=== PATIENT | female | born 1985 | race Caucasian/White ===

== ENCOUNTER 2017-06-03 15:00 | Emergency (ER) | payer OTHER ==
[2017-06-03 15:34] LABS: APPEARANCE,URINE CLOUDY; BILIRUBIN,URINE NEGATIVE (NEGATIVE); COLOR,URINE YELLOW; GLUCOSE, URINE NEGATIVE (NEGATIVE); KETONES,URINE NEGATIVE (NEGATIVE); LEUKOCYTE ESTERASE,URINE MODERATE (NEGATIVE); NITRITE,URINE NEGATIVE (NEGATIVE); PROTEIN,URINE NEGATIVE (NEGATIVE); URINE SPECIFIC GRAVITY 1.024; UROBILINOGEN,URINE NEGATIVE mg/dL (<2.0)
[2017-06-03] MEDS ORDERED: NORMAL SALINE 1000 ML 1,000 ML IV ONE (15:36)
[2017-06-03] MEDS ORDERED: METOCLOPRAMIDE HCL INJ/PF 10 MG/2 ML SDV IV ONE (15:36)
[2017-06-03] MEDS ORDERED: CEFTRIAXONE 1 GM/D5W RTU 1 GM/50 ML RTUPB IV ONE (15:41)
[2017-06-03 16:44] LABS: ABSOLUTE BASOPHILS # (AUTO) 0.1 10^3/uL (0.0-0.2); ABSOLUTE EOSINOPHILS # (AUTO) 0.1 10^3/uL (0.0-0.6); ABSOLUTE LYMPHOCYTES (AUTO) 1.6 10^3/uL (0.5-4.7); ABSOLUTE MONOCYTES (AUTO) 0.5 10^3/uL (0.1-1.4); ABSOLUTE NEUT (AUTO) 6.4 10^3/uL (1.7-8.2); BASOPHILS % (AUTO) 0.7 % (0-2); EOSINOPHILS % (AUTO) 0.9 % (0-6); HEMATOCRIT 37.4 % (36.0-47.0); HEMOGLOBIN 12.7 g/dL (12.0-15.5); LYMPHOCYTES % (AUTO) 18.5 % (13-45); MEAN CORPUSCULAR HEMOGLOBIN 29.8 pg (27.0-33.4); MEAN CORPUSCULAR HGB CONC 34.1 g/dL (32.0-36.0); MEAN CORPUSCULAR VOLUME 87 fl (80-97); MONOCYTES % (AUTO) 5.6 % (3-13); PLATELET COUNT 199 10^3/uL (150-450); RED BLOOD COUNT 4.27 10^6/uL (3.72-5.28); RED CELL DISTRIBUTION WIDTH 12.5 % (11.5-14.0); SEGMENTED NEUTROPHILS % (AUTO) 74.3 % (42-78); TOTAL CELLS COUNTED % (AUTO) 100 %; WHITE BLOOD COUNT 8.6 10^3/uL (4.0-10.5)
[2017-06-03] MEDS ORDERED: GENTAMICIN SULFATE INJ 80 MG/2 ML VIAL IV ONE (16:54)
[2017-06-03 17:08] LABS: ALANINE AMINOTRANSFERASE 27 U/L (9-52); ALBUMIN 3.8 g/dL (3.5-5.0); ALKALINE PHOSPHATASE 30 U/L (38-126); ANION GAP 10 (5-19); ASPARTATE AMINO TRANSFERASE 17 U/L (14-36); BILIRUBIN,DIRECT 0.1 mg/dL (0.0-0.4); BILIRUBIN,TOTAL 0.6 mg/dL (0.2-1.3); BLOOD UREA NITROGEN 7 mg/dL (7-20); CALCIUM 9.4 mg/dL (8.4-10.2); CARBON DIOXIDE 24 mmol/L (22-30); CHLORIDE 102 mmol/L (98-107); GLUCOSE 78 mg/dL (75-110); POTASSIUM 3.8 mmol/L (3.6-5.0); SODIUM 136.1 mmol/L (137-145); TOTAL PROTEIN 6.4 g/dL (6.3-8.2)
--- NOTE | 2017-06-03 18:20 | ER Document Report ---
ED GI/ - General Chief Complaint: Nausea, vomiting, bilateral flank pain Stated Complaint: VOMITING Time Seen by Provider: 06/03/17 15:35 Mode of Arrival: Ambulatory Information source: Patient Notes: Patient is a 32-year-old female who presents to the ER approximately 12 weeks for 2 months of nausea and vomiting despite multiple nausea medications. Patient has also had 2 months of urinary tract infection that seems to not be responding to antibiotics. Patient first was prescribed Keflex after being diagnosed with a UTI, then went to her [facility] who change the Keflex to Macrobid. Patient states that she took all of the Macrobid but was still having burning with urination, worsening symptoms at that time as she really did not have burning before, states she started back on the Keflex and finished that. Patient states that now she is having burning with urination and bilateral flank pain. She denies any fevers or chills that she is noted. She states she does not know if the vomiting is from the urinary tract infection or because she is but she cannot seem to keep anything down and vomits at least 4-5 times per day. She is tried Zofran, Phenergan rectally, Diclegis, B6. TRAVEL OUTSIDE OF THE [place] IN LAST 30 DAYS: No Past Medical History - General Information source: Patient - Social History Smoking Status: Never Smoker Chew tobacco use (# tins/day): No Frequency of alcohol use: None Drug Abuse: None Family History: Reviewed & Not Pertinent Patient has suicidal ideation: No Patient has homicidal ideation: No Renal/ Medical History: Denies: Hx Peritoneal Dialysis Review of Systems - Review of Systems Constitutional: No symptoms reported EENT: No symptoms reported Cardiovascular: No symptoms reported Respiratory: No symptoms reported Gastrointestinal: See HPI Genitourinary: See HPI Female Genitourinary: See HPI Musculoskeletal: No symptoms reported Skin: No symptoms reported Hematologic/Lymphatic: No symptoms reported Neurological/Psychological: No symptoms reported Physical Exam - Vital signs Vitals: Temp Pulse Resp BP Pulse Ox 97.8 F 83 20 115/70 100 06/03/17 15:07 06/03/17 15:07 06/03/17 15:07 06/03/17 15:07 06/03/17 15:07 - Notes Notes: PHYSICAL EXAMINATION: GENERAL: tearful, but in no acute distress. HEAD: Atraumatic, normocephalic. EYES: Pupils equal round and reactive to light, extraocular movements intact, sclera anicteric, conjunctiva are normal. NECK: Normal range of motion, supple without lymphadenopathy LUNGS: CTAB and equal. No wheezes rales or rhonchi. HEART: Regular rate and rhythm without murmurs ABDOMEN: Soft, suprapubic tenderness. No guarding, no rebound BACK: no vertebral tenderness, normal ROM GI/: Bilateral CVA tenderness EXTREMITIES: Normal range of motion, no pitting edema. No cyanosis. NEUROLOGICAL: Cranial nerves grossly intact. Normal sensory/motor exams. PSYCH: Normal mood, normal affect. SKIN: Warm, Dry, normal turgor, no rashes or lesions noted Course - Re-evaluation Re-evalutation: 06/03/17 18:20 Patient has moderate leukocytes and 18 white blood cells, small amount of blood on urinalysis. Patient has been on Keflex and Macrobid. Her white count is normal today. She is not tachycardic or febrile here in the emergency department with normal vital signs. Dr. Cronin, [employer] on-call was consulted because patient is and he advises 1 dose of IV gentamicin here in the emergency department and to discharge her to follow-up in the office. She has not been nauseated at all here in the emergency department after given Reglan. I will send her home with Reglan. - Vital Signs Vital signs: Temp Pulse Resp BP Pulse Ox 97.9 F 83 16 99/55 L 100 06/03/17 18:02 06/03/17 15:07 06/03/17 18:02 06/03/17 18:02 06/03/17 18:02 - Laboratory Result Diagrams: 06/03/17 16:12 06/03/17 16:12 Laboratory results interpreted by me: 06/03/17 06/03/17 15:14 16:12 Sodium 136.1 L Alkaline Phosphatase 30 L Beta HCG, Quant 544246.00 H Urine Blood SMALL H Ur Leukocyte Esterase MODERATE H Discharge - Discharge Clinical Impression: Vomiting affecting UTI (urinary tract infection) Qualifiers: Urinary tract infection type: site unspecified Hematuria presence: with hematuria Qualified Code(s): N39.0 - Urinary tract infection, site not specified Condition: Stable Disposition: HOME, SELF-CARE Instructions: Antinausea Medication ([facility]), Intravenous (IV) Fluids ([facility]), Reglan ([facility]), Urinary Tract Infection ([facility]), Vomiting ([facility]) Additional Instructions: Drink plenty of fluids. Return immediately for any new or worsening symptoms. Follow up with OBGYN, call tomorrow to make followup appointment. 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
[2017-06-03 19:02] VITALS: BP 99/55
== END 2017-06-03 19:02 | disposition home or self-care (01) ==
LOC: ER 15:00
DX: O21.9 Vomiting of pregnancy, unspecified (principal); O23.40 Unspecified infection of urinary tract in pregnancy, unspecified trimester; O26.899 Other specified pregnancy related conditions, unspecified trimester; R10.9 Unspecified abdominal pain; R30.0 Dysuria; Z3A.00 Weeks of gestation of pregnancy not specified
CPT/HCPCS: 99284; 96375; 96365; 96367; 36415; 87086; 84702; 85025; 80053; 81001; J1580; J2765; J7030; J0696

== ENCOUNTER 2017-07-06 14:44 | Emergency (ER) | payer OTHER ==
[2017-07-06] MEDS ORDERED: NORMAL SALINE 1000 ML 1,000 ML IV ONE ×2 (15:07→16:59)
[2017-07-06] MEDS ORDERED: ONDANSETRON HCL INJ/PF 4 MG/2 ML SDV IV ONE ×2 (15:08→17:06)
--- NOTE | 2017-07-06 15:14 | ER Document Report ---
ED Medical Screen (RME) - General Chief Complaint: Nausea/Vomiting Stated Complaint: FEVER,VOMITING Time Seen by Provider: 07/06/17 14:59 TRAVEL OUTSIDE OF THE [place] IN LAST 30 DAYS: No - HPI Notes: 07/06/17 15:10 Patient is a 32-year-old female who is 2 para 1 at 15 weeks and presents with vomiting, cough, dysuria, and low back pain. Patient states for the past 6 weeks approximately she has been fighting a urinary tract infection. Patient was originally placed on Keflex and then she was placed on Macrodantin because her OB felt that the Keflex may be contributing to her vomiting. Patient states that she was also seen in the emergency department and given Rocephin and gentamicin. She states that she had one urine culture and it grew out normal nancy(active bacillus to be exact). Patient states she has been coughing for the last few days and having dysuria. She was restarted on Macrodantin 1 day ago. States she is taking Tylenol every 4 hours for headache. She denies contractions vaginal bleeding or abnormal vaginal discharge. 07/06/17 15:13 I have greeted and performed a rapid initial assessment of this patient. A comprehensive ED assessment and evaluation of the patient, analysis of test results and completion of the medical decision making process will be conducted by additional ED providers. PHYSICAL EXAMINATION: GENERAL: Mildly ill-appearing, well-nourished, in no acute distress. HEAD: Atraumatic, normocephalic. EYES: Pupils equal round extraocular movements intact, conjunctiva are normal. ENT: Nares patent NECK: Normal range of motion LUNGS: No respiratory distress Musculoskeletal: Normal range of motion NEUROLOGICAL: Normal speech, normal gait. PSYCH: Normal mood, normal affect. SKIN: Warm, Dry, normal turgor, no rashes or lesions noted. - Related Data Allergies/Adverse Reactions: No Known Allergies Allergy (Verified 07/06/17 14:45) Past Medical History - Social History Chew tobacco use (# tins/day): No Frequency of alcohol use: None Drug Abuse: None Renal/ Medical History: Denies: Hx Peritoneal Dialysis Physical Exam - Vital signs Vitals: Temp Pulse Resp BP Pulse Ox 97.9 F 107 H 16 111/67 98 07/06/17 14:50 07/06/17 14:50 07/06/17 14:50 07/06/17 14:50 07/06/17 14:50 Course - Vital Signs Vital signs: Temp Pulse Resp BP Pulse Ox 97.9 F 107 H 16 111/67 98 07/06/17 14:50 07/06/17 14:50 07/06/17 14:50 07/06/17 14:50 07/06/17 14:50
--- NOTE | 2017-07-06 15:46 | ER Document Report ---
ED GI/ - General Chief Complaint: Nausea/Vomiting Stated Complaint: FEVER,VOMITING Time Seen by Provider: 07/06/17 14:59 Mode of Arrival: Ambulatory Information source: Patient Notes: 32-year-old female 001 at 15 weeks by ultrasound presents today with around 5 days of runny nose, congestion, back pain, cough, and vomiting. Patient has had a long history of vomiting with including an episode in May being diagnosed with UTI. She was seen here also for vomiting in the very beginning of June with a urine culture showing only lactobacillus. Patient had been treated initially on the first urinary tract infection diagnosis with Macrobid. She called her primary doctor, Dr. pinedo, on Saturday and they placed her back on Macrobid. Patient states both of her children have recently been diagnosed with similar upper respiratory tract/flu symptoms. Patient denies any abdominal pain, cramping, or vaginal bleeding. TRAVEL OUTSIDE OF THE [place] IN LAST 30 DAYS: No - HPI Patient complains to provider of: Other - See above Onset: Other - See above Quality of pain: Other - See above Severity at maximum: Mild Severity in ED: Mild Pain Level: 0 Location: Other - See above Vaginal bleeding (Compared to normal period): None OB ultrasound done: Yes vitamins taken: Yes Sexual history: Active Associated symptoms: Other - See above Exacerbated by: Denies Relieved by: Denies Similar symptoms previously: No Recently seen / treated by doctor: No - Related Data Allergies/Adverse Reactions: No Known Allergies Allergy (Verified 07/06/17 14:45) Past Medical History - General Information source: Patient - Social History Smoking Status: Never Smoker Cigarette use (# per day): No Chew tobacco use (# tins/day): No Smoking Education Provided: No Frequency of alcohol use: None Drug Abuse: None Family History: Reviewed & Not Pertinent Patient has suicidal ideation: No Patient has homicidal ideation: No Renal/ Medical History: Denies: Hx Peritoneal Dialysis Review of Systems - Review of Systems Constitutional: denies: Fever EENT: Nose discharge. denies: Eye discharge Cardiovascular: denies: Chest pain, Palpitations Respiratory: denies: Hurts to breathe, Short of breath Gastrointestinal: Vomiting. denies: Diarrhea Genitourinary: denies: Dysuria Female Genitourinary: Musculoskeletal: denies: Leg swelling Skin: Other - no hives. denies: Rash Neurological/Psychological: Other - no slurred speech -: Yes All other systems reviewed and negative Physical Exam - Vital signs Vitals: Temp Pulse Resp BP Pulse Ox 97.9 F 107 H 16 111/67 98 07/06/17 14:50 07/06/17 14:50 07/06/17 14:50 07/06/17 14:50 07/06/17 14:50 Notes: Reviewed vital signs and nursing note as charted by RN. CONSTITUTIONAL: Alert and oriented and responds appropriately to questions. Well -appearing; well-nourished HEAD: Normocephalic; atraumatic EYES: PERRL ENT: Normal nose; bilateral nonpurulent nasal rhinorrhea; moist mucous membranes ; pharynx without lesions noted NECK: Supple; non-tender CARD: Regular rate and rhythm; no murmurs RESP: Normal chest excursion without splinting or tachypnea; breath sounds clear and equal bilaterally; no wheezes, no rhonchi, no rales ABD/GI: Normal bowel sounds; non-distended with no obvious palpable fundus; soft , non-tender BACK: The back appears normal and is non-tender to palpation, there is no CVA tenderness EXT: Normal ROM in all joints; non-tender to palpation; no cyanosis, no effusions, no edema SKIN: No acute lesions noted NEURO: Moves all extremities equally; Motor and sensory function intact PSYCH: The patient's mood and manner are appropriate. Grooming and personal hygiene are appropriate. Course - Re-evaluation Re-evalutation: 07/06/17 15:49 Given the history and physical examination, I do not believe that the patient requires any imaging at this time. We will obtain fluids, urinalysis, basic labs, and the influenza test. We will reassess the patient's abdomen and vital signs. 07/06/17 16:59 Labs as recorded. Influenza positive. Urine analysis as recorded. Urine culture has been sent. Mild transaminitis. Patient still has no abdominal pain. I have added a second liter of intravenous fluid. Patient has not vomited here at this facility. Patient is still currently taking Macrobid. Given the above history and physical examination I have offered Tamiflu. 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 She does not want Tamiflu at this time. Patient states she would like to go home and will follow up with the primary care physician/[facility] as an outpatient pending urine culture. I have informed the patient of the slight transaminitis and she knows to get follow-up and reevaluation. - Vital Signs Vital signs: Temp Pulse Resp BP Pulse Ox 97.9 F 107 H 16 111/67 98 07/06/17 14:50 07/06/17 14:50 07/06/17 14:50 07/06/17 14:50 07/06/17 14:50 - Laboratory Result Diagrams: 07/06/17 15:32 07/06/17 15:32 Laboratory results interpreted by me: 07/06/17 07/06/17 07/06/17 15:32 15:32 15:32 Hgb 11.2 L Hct 32.6 L Sodium 129.8 L Direct Bilirubin 0.5 H AST 67 H ALT 96 H Total Protein 6.0 L Albumin 3.4 L Urine Ketones 80 H Urine Urobilinogen 4.0 H Ur Leukocyte Esterase SMALL H Discharge - Discharge Clinical Impression: Influenza, Transaminitis Vomiting Qualifiers: Vomiting type: unspecified Vomiting Intractability: non-intractable Nausea presence: with nausea Qualified Code(s): R11.2 - Nausea with vomiting, unspecified Qualifiers: Weeks of gestation: 15 weeks Qualified Code(s): Z3A.15 - 15 weeks gestation of Condition: Good Disposition: HOME, SELF-CARE Additional Instructions: Come back immediately for any increased pain, abdominal pain, vaginal bleeding, persistent vomiting, change in mental status, lethargy, or any other acute problems. Please continue taking her Macrobid and follow-up on the urine culture as well as a repeat evaluation regarding your liver enzyme levels.
[2017-07-06 15:54] LABS: ABSOLUTE LYMPHOCYTES (AUTO) 2.1 10^3/uL (0.5-4.7); ABSOLUTE MONOCYTES (AUTO) 0.4 10^3/uL (0.1-1.4); ABSOLUTE NEUT (AUTO) 4.2 10^3/uL (1.7-8.2); BASOPHILS % (AUTO) 0.4 % (0-2); EOSINOPHILS % (AUTO) 0.5 % (0-6); HEMATOCRIT 32.6 % (36.0-47.0); HEMOGLOBIN 11.2 g/dL (12.0-15.5); LYMPHOCYTES % (AUTO) 30.5 % (13-45); MEAN CORPUSCULAR HEMOGLOBIN 29.3 pg (27.0-33.4); MEAN CORPUSCULAR HGB CONC 34.4 g/dL (32.0-36.0); MEAN CORPUSCULAR VOLUME 85 fl (80-97); MONOCYTES % (AUTO) 6.5 % (3-13); PLATELET COUNT 157 10^3/uL (150-450); RED BLOOD COUNT 3.83 10^6/uL (3.72-5.28); RED CELL DISTRIBUTION WIDTH 13.6 % (11.5-14.0); SEGMENTED NEUTROPHILS % (AUTO) 62.1 % (42-78); TOTAL CELLS COUNTED % (AUTO) 100 %; WHITE BLOOD COUNT 6.8 10^3/uL (4.0-10.5)
[2017-07-06 16:00] LABS: APPEARANCE,URINE SLIGHTLY-CLOUDY; BILIRUBIN,URINE NEGATIVE (NEGATIVE); COLOR,URINE YELLOW; GLUCOSE, URINE NEGATIVE (NEGATIVE); KETONES,URINE 80 mg/dL (NEGATIVE); LEUKOCYTE ESTERASE,URINE SMALL (NEGATIVE); NITRITE,URINE NEGATIVE (NEGATIVE); PROTEIN,URINE NEGATIVE (NEGATIVE); URINE SPECIFIC GRAVITY 1.016
[2017-07-06 16:03] LABS: ALANINE AMINOTRANSFERASE 96 U/L (9-52); ALBUMIN 3.4 g/dL (3.5-5.0); ALKALINE PHOSPHATASE 57 U/L (38-126); ANION GAP 7 (5-19); ASPARTATE AMINO TRANSFERASE 67 U/L (14-36); BILIRUBIN,DIRECT 0.5 mg/dL (0.0-0.4); BILIRUBIN,TOTAL 1.2 mg/dL (0.2-1.3); BLOOD UREA NITROGEN 8 mg/dL (7-20); CALCIUM 8.8 mg/dL (8.4-10.2); CARBON DIOXIDE 25 mmol/L (22-30); CHLORIDE 98 mmol/L (98-107); GLUCOSE 89 mg/dL (75-110); MAGNESIUM 1.9 mg/dL (1.6-2.3); POTASSIUM 3.7 mmol/L (3.6-5.0); SODIUM 129.8 mmol/L (137-145)
[2017-07-06 16:13] LABS: A TYPE INFLUENZA AG POSITIVE (NEGATIVE); B INFLUENZA AG NEGATIVE (NEGATIVE)
[2017-07-06] MEDS ORDERED: PROMETHAZINE HCL INJ 25 MG/1 ML VIAL IV ONE (18:08)
[2017-07-06 18:56] VITALS: BP 108/52
== END 2017-07-06 19:39 | disposition home or self-care (01) ==
LOC: ER 14:44
DX: J11.1 Influenza due to unidentified influenza virus with other respiratory manifestations (principal); R74.0 Nonspecific elevation of levels of transaminase and lactic acid dehydrogenase [LDH]; R11.2 Nausea with vomiting, unspecified; R50.9 Fever, unspecified; Z3A.15 15 weeks gestation of pregnancy
CPT/HCPCS: 96376; 99284; 96361; 96374; 96375; 36415; 87086; 83735; 85025; 80053; 81001; 87804; J2550; J2405; J7030